=== PATIENT | female | born 1980 | race Caucasian/White ===

== ENCOUNTER → 2017-01-25 | Outpatient (CLI) | payer MEDICAID ==
--- NOTE | 2017-01-26 08:43 | ECHOF ---
Referral Reason:R01.1 cardiac murmur MEASUREMENTS -------- HEIGHT: 170.2 cm WEIGHT: 86.2 kg BP: 124/72 RVIDd: 2.8 cm (< 3.3) IVSd: 1.1 cm (0.6 - 1.1) LVIDd: 3.8 cm (3.9 - 5.3) LVPWd: 1.1 cm (0.6 - 1.1) IVSs: 1.6 cm LVIDs: 2.6 cm LVPWs: 1.6 cm LA Diam: 2.6 cm (2.7 - 3.8) LAESV Index (A-L): 18.93 ml/m Ao Diam: 3.0 cm (2.0 - 3.7) AV Cusp: 2.0 cm (1.5 - 2.6) LA Diam: 2.8 cm (2.7 - 3.8) MV EXCURSION: 23.254 mm (> 18.000) MV EF SLOPE: 143 mm/s (70 - 150) EPSS: 0.2 cm MV E Darvin: 0.79 m/s MV DecT: 167 ms MV A Darvin: 0.53 m/s MV E/A Ratio: 1.47 RAP: 5.00 mmHg RVSP: 14.73 mmHg FINDINGS -------- Sinus rhythm. This was a technically good study. The left ventricular size is normal. There is borderline concentric left ventricular hypertrophy. Overall left ventricular systolic function is normal with, an EF between 55 - 60 %. The right ventricle is normal in size. Normal LA size by volume 22+/-6 ml/m2. The right atrium is normal in size. The aortic valve is trileaflet, and appears structurally normal. No aortic stenosis or regurgitation. The mitral valve is normal. Mild mitral regurgitation is present. The tricuspid valve appears structurally normal. Trace tricuspid regurgitation present. Right ventricular systolic pressure is normal at < 35 mmHg. Trace/mild (physiologic) pulmonic regurgitation. The aortic root size is normal. Normal inferior vena cava with normal inspiratory collapse consistent with estimated right atrial pressure of 5 mmHg. There is no pericardial effusion. CONCLUSIONS -------- 1. Sinus rhythm. 2. Trace/mild (physiologic) pulmonic regurgitation. 3. The aortic root size is normal. 4. Normal inferior vena cava with normal inspiratory collapse consistent with estimated right atrial pressure of 5 mmHg. 5. There is no pericardial effusion. 6. This was a technically good study. 7. There is borderline concentric left ventricular hypertrophy. 8. Overall left ventricular systolic function is normal with, an EF between 55 - 60 %. 9. Normal LA size by volume 22+/-6 ml/m2. 10. The aortic valve is trileaflet, and appears structurally normal. No aortic stenosis or regurgitation. 11. Mild mitral regurgitation is present. 12. Trace tricuspid regurgitation present. 13. Right ventricular systolic pressure is normal at < 35 mmHg. CASE MANAGEMENT ASSISTANT: Haily Michelle RDCS
== END | disposition home or self-care (01) ==
LOC: RADECHMAIN 16:38
PROVIDERS: ATTEND Family Medicine
DX: I08.3 Combined rheumatic disorders of mitral, aortic and tricuspid valves (principal); I51.7 Cardiomegaly
CPT/HCPCS: 93306

== ENCOUNTER → 2019-05-22 | Outpatient (CLI) | payer MEDICAID ==
[2019-05-22 14:54] LABS: Basophils # (A) 0.1 k/uL (0-0.2); Basophils % (A) 1 %; Eosinophils # (A) 0.1 k/uL (0-0.7); Eosinophils % (A) 2 %; HCT 42.4 % (34.0-46.0); Lymphocytes % (A) 33 %; MCH 32.8 pg (25.0-35.0); MCHC 33.1 g/dL (31.0-37.0); MCV 99.1 fL (80.0-100.0); Mean Platelet Volume 7.1; Monocytes # (A) 0.3 k/uL (0-1.0); Monocytes % (A) 5 %; Neutrophils # (A) 3.6 k/uL (1.3-7.7); Neutrophils % (A) 58 %; Platelet Count 325 k/uL (150-450); RBC 4.27 m/uL (3.80-5.40); RDW 14.1 % (11.5-15.5); WBC 6.1 k/uL (3.8-10.6)
== END | disposition home or self-care (01) ==
LOC: LABPAT 14:33
PROVIDERS: ATTEND Obstetrics & Gynecology Obstetrics
DX: Z01.812 Encounter for preprocedural laboratory examination (principal); N92.0 Excessive and frequent menstruation with regular cycle
CPT/HCPCS: 36415; 85025

== ENCOUNTER 2019-05-26 07:29 | Day surgery (SDC) | payer MEDICAID ==
[2019-05-22 11:44] VITALS: BMI 32.3
[~2019-05-26 07:29] MED LIST: DEXAMETHASONE SOD PHOSPHATE 10 MG/ML 1 ML VIAL IV ONE; HYDROmorphone 0.5 MG/0.5 ML SYRINGE IVP PRN; LACTATED RINGERS 1,000 ML IV SCH; LIDOCAINE 1% 20 ML VIAL (10MG/ML) FOR IV START INTRADERMA PRN; MIDAZOLAM 2 MG/2 ML VIAL IV PRN; ONDANSETRON 4 MG/2 ML VIAL IVP ONE; Pre Op ABX Message 1 EACH MISC MISCELLANE ONE; SCOPOLAMINE 1.5MG/72HR PATCH TRANSDERM ONE
[2019-05-26] MEDS ORDERED: PROPOFOL 10 MG/ML 20 ML VIAL IV ONE (09:08)
[2019-05-26] MEDS ORDERED: MIDAZOLAM 2 MG/2 ML VIAL ONE (09:08)
[2019-05-26] MEDS ORDERED: KETOROLAC 30 MG/ML 1 ML VIAL ONE (09:08)
[2019-05-26] MEDS ORDERED: fentaNYL (PF) 50 MCG/ML 2 ML AMP ONE (09:08)
--- NOTE | 2019-05-26 09:28 | P.OP ---
Date of Procedure: 05/26/19 Preoperative Diagnosis: Menorrhagia, dysmenorrhea Postoperative Diagnosis: Same Procedure(s) Performed: Hysteroscopy, dilation and curettage, endometrial ablation with NovaSure Anesthesia: MAC Surgeon: Ann Copeland Estimated Blood Loss (ml): 5 IV fluids (ml): 400 Urine output (ml): 100 Pathology: other (Endometrial curettings) Condition: stable Disposition: PACU Indications for Procedure: Heavy menstrual bleeding to 20 days with significant dysmenorrhea Operative Findings: Normal and Malu cavity is visualized, total length of 6, width of 3.8, power of 125 for cycle time of 61 seconds. Description of Procedure: Patient is seen in the preoperative area and informed consent is obtained once again as it was in the office. Patient denies questions and wishes to proceed. Patient was taken back to the operative suite where general anesthesia was obtained without difficulty by the anesthesia department. She is then prepped and draped in normal sterile fashion in the dorsal lithotomy position. Red rubber catheter was then used to drain the bladder approximately 100 mL of clear yellow urine. A weighted speculum was placed in the posterior vaginal vault the anterior lip of the cervix is visualized and grasped with a single-tooth tenaculum. The endocervical canal then dilated to 18-Spanish, and hysteroscope was placed through the cervix and toward the intracavity a normal appearing proliferative endometrial cavity is noted. Multiple pictures were taken and the hysteroscope was removed. A sharp curettage was then performed until gritty texture was noted in all 4 quadrants. At this time the NovaSure device was opened and set to the appropriate measurements measurements per her uterine length and width. the cavity assessment is done and passed, once this is complete the novasure is operated according to applied researcher's instructions for a total cycle time of 61 seconds. Afterwards the device was removed without difficulty the single-tooth tenaculum was taken off of the anterior lip of the cervix and hemostasis was appreciated. All instruments removed from the patient's vaginal vault ARE correct 2 patient tolerated procedure well and was taken the recovery room awake and in stable condition.
[2019-05-26 09:35] VITALS: TEMP 97.1
[2019-05-26] MEDS ORDERED: PROMETHAZINE INJ 25 MG/ML 1 ML VIAL IVPB ONE (10:15)
[2019-05-26 10:55] VITALS: BP 138/89; PULSE 79; RESP 18
== END 2019-05-26 10:58 | disposition home or self-care (01) ==
LOC: OR 07:29
PROVIDERS: ATTEND Obstetrics & Gynecology Obstetrics
DX: N92.0 Excessive and frequent menstruation with regular cycle (principal); N94.6 Dysmenorrhea, unspecified; Z88.1 Allergy status to other antibiotic agents; Z87.891 Personal history of nicotine dependence; Z79.899 Other long term (current) drug therapy
CPT/HCPCS: 58563; 81025; 88305; J2250; J1100; J2550; J2405; J3010; J1885; J2704

== ENCOUNTER → 2020-08-02 | Outpatient (CLI) | payer MEDICAID | END | disposition home or self-care (01) | LOC: LABWHC1 12:42 | PROVIDERS: ATTEND Pediatrics Pediatric Infectious Diseases | DX: Z03.818 Encounter for observation for suspected exposure to other biological agents ruled out (principal) | CPT/HCPCS: U0003; C9803 ==

== ENCOUNTER → 2020-08-05 | Outpatient (CLI) | payer MEDICAID | END | disposition home or self-care (01) | LOC: LABWHC1 15:13 | PROVIDERS: ATTEND Pediatrics Pediatric Infectious Diseases | DX: Z20.828 Contact with and (suspected) exposure to other viral communicable diseases (principal) | CPT/HCPCS: U0003; C9803 ==

== ENCOUNTER → 2020-10-07 | Outpatient (CLI) | payer MEDICAID | END | disposition home or self-care (01) | LOC: LABMAIN 18:48 | PROVIDERS: ATTEND Emergency Medicine | DX: Z20.828 Contact with and (suspected) exposure to other viral communicable diseases (principal) | CPT/HCPCS: 36415 ==

== ENCOUNTER 2020-12-27 23:52 | Emergency (ER) | payer MEDICAID ==
[2020-12-27 23:56] VITALS: TEMP 98.9
[2020-12-28] MEDS ORDERED: KETOROLAC 15 MG/ML 1 ML VIAL IVP STA (00:28)
[2020-12-28 00:34] LABS: Basophils % (A) 1 %; Eosinophils % (A) 0 %; HCT 46.2 % (34.0-46.0); HGB 15.7 gm/dL (11.4-16.0); Lymphocytes # (A) 1.1 k/uL (1.0-4.8); Lymphocytes % (A) 18 %; MCH 32.9 pg (25.0-35.0); MCHC 34.1 g/dL (31.0-37.0); MCV 96.7 fL (80.0-100.0); Mean Platelet Volume 7.3; Monocytes # (A) 0.2 k/uL (0-1.0); Monocytes % (A) 4 %; Neutrophils # (A) 4.5 k/uL (1.3-7.7); Neutrophils % (A) 76 %; Platelet Count 232 k/uL (150-450); RBC 4.77 m/uL (3.80-5.40); RDW 13.2 % (11.5-15.5); WBC 5.9 k/uL (3.8-10.6)
[2020-12-28 00:57] LABS: ALT 60 U/L (4-34); AST 68 U/L (14-36); African American GFR (CKD) >90 (>60 ml/min/1.73 sqM); Alkaline Phosphatase 65 U/L (38-126); Anion Gap 13 mmol/L; Blood Urea Nitrogen 6 mg/dL (7-17); Calcium 8.8 mg/dL (8.4-10.2); Carbon Dioxide 22 mmol/L (22-30); Chloride 103 mmol/L (98-107); Glucose 118 mg/dL (74-99); LDH 1114 U/L (313-618); Magnesium 1.9 mg/dL (1.6-2.3); Non-African American GFR(CKD) >90 (>60 ml/min/1.73 sqM); Potassium 3.5 mmol/L (3.5-5.1); Sodium 138 mmol/L (137-145); Total Bilirubin 0.5 mg/dL (0.2-1.3); Total Protein 7.6 g/dL (6.3-8.2)
[2020-12-28] MEDS ORDERED: SODIUM CHLORIDE 0.9% 500 ML 500 ML IV ONE (00:57)
[2020-12-28 00:59] LABS: D-Dimer 0.53 mg/L FEU (<0.60); INR 0.9 (<1.2); Prothrombin Time 9.5 sec (9.0-12.0)
[2020-12-28] MEDS ORDERED: SODIUM CHLORIDE 0.9% 1,000 ML IV SCH (01:00)
[2020-12-28 01:58] VITALS: BP 128/86; PULSE 94; RESP 18
--- NOTE | 2020-12-28 02:02 | CT ---
EXAMINATION TYPE: CT chest angio for PE DATE OF EXAM: 12/28/2020 COMPARISON: None HISTORY: hx PE, covid, pleuritic chest pain CT DLP: 382.5 mGycm Automated exposure control for dose reduction was used. CONTRAST: Performed with IV Contrast, patient injected with 65ml mL of Isovue 370. Images were obtained from the thoracic inlet to the diaphragm with IV contrast and 3-D post processin g. There is extensive patchy bilateral pulmonary airspace infiltrates. Heart size is normal. There is no mediastinal adenopathy. There are no hilar masses. There are bronchial enlarged multiple lymph nodes that measure up to 1.5 cm. This is likely inflammatory. There is no evidence of aortic aneurysm or d issection. I see no filling defects in the pulmonary arteries. Thoracic spine is intact. There is no compression fracture. Sternum is intact. IMPRESSION: Extensive bilateral pulmonary infiltrates consistent with pneumonia. Bronchial adenopathy. No evidence of pulmonary embolism.
[2020-12-28 02:04] LABS: C Reactive Protein 157.4 mg/L (<10.0)
--- NOTE | 2020-12-28 02:20 | ED ---
SOB HPI - General Chief Complaint: Shortness of Breath Stated Complaint: Covid +, SOB Time Seen by Provider: 12/28/20 00:03 Source: patient Mode of arrival: ambulatory Limitations: no limitations - History of Present Illness Initial Comments: Very pleasant 40-year-old female presenting today for chief complaint of shortness of breath but positive Covid diagnosis. Patient states that she has had Covid for the past 10 days. She states initially she had a lot more headaches body aches and fevers on and off for cheese able to manage with alternating Tylenol and Aleve. Patient states that for the past day she's had increasing respiratory symptoms including shortness of breath and pain with deep inspiration patient states that she has not had hemoptysis she denies leg swelling calf pain. Patient states she does have history of pulmonary embolism during in the past and this concerned her. patient bought a home oxygen monitor and states it was quite low at 88% and she noticed her HR was hgiher than usual, this made her nervous and she came to the ER for evaluation. Upon arrival pt saturating 94-96% she does appear anxious, and HR is 130. - Related Data Home Medications Medication Instructions Recorded Confirmed ALPRAZolam [Xanax] 0.5 mg PO HS 05/22/19 05/26/19 Previous Rx's Medication Instructions Recorded Albuterol Sulfate [Proair Hfa] 1 - 2 puff INHALATION Q6HR PRN 30 12/28/20 Days #1 inhaler Butalb/APAP/Caff 50-325-40Mg 1 tab PO Q8H PRN 3 Days #9 tablet 12/28/20 [Fioricet 50-325-40] Dexamethasone [Decadron] 6 mg PO DAILY 2 Days #2 tablet 12/28/20 Allergies Allergy/AdvReac Type Severity Reaction Status Date / Time cephalexin [From Keflex] Allergy nausea/dizz Verified 12/27/20 23:54 y Review of Systems ROS Statement: Those systems with pertinent positive or pertinent negative responses have been documented in the HPI. ROS Other: All systems not noted in ROS Statement are negative. Past Medical History Past Medical History: Pulmonary Embolus (PE) Additional Past Medical History / Comment(s): endometriosis/heavy periods History of Any Multi-Drug Resistant Organisms: None Reported Past Surgical History: No Surgical Hx Reported Past Anesthesia/Blood Transfusion Reactions: Family History of Problems w/ Anesthesia, Motion Sickness Additional Past Anesthesia/Blood Transfusion Reaction / Comment(s): mother-PONV. pt has never had anesthesia Past Psychological History: Anxiety Smoking Status: Current every day smoker Past Alcohol Use History: Occasional Past Drug Use History: None Reported - Past Family History Mother Family Medical History: Cancer General Exam - General Exam Comments Initial Comments: General: The patient is awake and alert, in no distress Eye: Pupils are equal, round and reactive to light, extra-ocular movements are intact. No nystagmus. There is normal conjunctiva bilaterally. No signs of icterus. Cardiovascular: There is a regular rate and rhythm. No murmur, rub or gallop is appreciated. Respiratory: Lungs are clear to auscultation, respirations are non-labored, breath sounds are equal. No wheezes, stridor, rales, or rhonchi. No retractions or abdominal breathing Musculoskeletal: Normal ROM, no tenderness. Strength 5/5. Sensation intact. Radial pulses equal bilaterally 2+. Neurological: A&O x 3. CN II-XII intact grossly, There are no obvious motor or sensory deficits. Coordination appears grossly intact. Speech is normal. Skin: Skin is warm and dry and no rashes or lesions are noted. Psychiatric: Cooperative, appropriate mood & affect, normal judgment. Limitations: no limitations Course Vital Signs 12/27/20 12/28/20 23:54 01:57 Temperature 98.9 F Pulse Rate 136 H 94 Respiratory 20 18 Rate Blood Pressure 159/91 128/86 O2 Sat by Pulse 95 95 Oximetry Medical Decision Making - Medical Decision Making Lungs overall sound clear to auscultation no obvious abnormality. Patient does have history of pulmonary embolism-moving here from the low risk to the high risk category. CT negative for pulmonary embolism however there is an extensive pulmonary infiltrates consistent with covert pneumonia. This is felt to be viral. Patient is no leukocytosis. She is no longer febrile. Patient is maintaining adequate oxygen saturation at 96%. At this time I feel patient is stable for discharge wtih close home monitoring and return for any worsening sym ptoms (which I explained may occurr). We discussed recent research and types of treatment available. I discussed risks first benefit of Decadron and patient would like to proceed despite being 96% on RA. Patient provided proAir, and fiorcet for migraines she was experienciing with this viral infection. Patient is agreeable to this treatment and care plan--- I discussed the case with attending provider Dr. Isaac who is agreeable to discharge. - Lab Data Result diagrams: 12/28/20 00:20 12/28/20 00:20 Lab Results 12/28/20 12/28/20 12/28/20 Range/Units 00:20 00:20 00:20 WBC 5.9 (3.8-10.6) k/uL RBC 4.77 (3.80-5.40) m/uL Hgb 15.7 (11.4-16.0) gm/dL Hct 46.2 H (34.0-46.0) % MCV 96.7 (80.0-100.0) fL MCH 32.9 (25.0-35.0) pg MCHC 34.1 (31.0-37.0) g/dL RDW 13.2 (11.5-15.5) % Plt Count 232 (150-450) k/uL MPV 7.3 Neutrophils % 76 % Lymphocytes % 18 % Monocytes % 4 % Eosinophils % 0 % Basophils % 1 % Neutrophils # 4.5 (1.3-7.7) k/uL Lymphocytes # 1.1 (1.0-4.8) k/uL Monocytes # 0.2 (0-1.0) k/uL Eosinophils # 0.0 (0-0.7) k/uL Basophils # 0.0 (0-0.2) k/uL PT 9.5 (9.0-12.0) sec INR 0.9 (<1.2) APTT 27.0 (22.0-30.0) sec D-Dimer 0.53 (<0.60) mg/L FEU Sodium 138 (137-145) mmol/L Potassium 3.5 (3.5-5.1) mmol/L Chloride 103 (98-107) mmol/L Carbon Dioxide 22 (22-30) mmol/L Anion Gap 13 mmol/L BUN 6 L (7-17) mg/dL Creatinine 0.69 (0.52-1.04) mg/dL Est GFR (CKD-EPI)AfAm >90 (>60 ml/min/1.73 sqM) Est GFR (CKD-EPI)NonAf >90 (>60 ml/min/1.73 sqM) Glucose 118 H (74-99) mg/dL Plasma Lactic Acid Solomon (0.7-2.0) mmol/L Calcium 8.8 (8.4-10.2) mg/dL Magnesium 1.9 (1.6-2.3) mg/dL Total Bilirubin 0.5 (0.2-1.3) mg/dL AST 68 H (14-36) U/L ALT 60 H (4-34) U/L Alkaline Phosphatase 65 (38-126) U/L Lactate Dehydrogenase 1114 H (313-618) U/L C-Reactive Protein 157.4 H (<10.0) mg/L Total Protein 7.6 (6.3-8.2) g/dL Albumin 4.0 (3.5-5.0) g/dL 12/28/20 Range/Units 00:20 WBC (3.8-10.6) k/uL RBC (3.80-5.40) m/uL Hgb (11.4-16.0) gm/dL Hct (34.0-46.0) % MCV (80.0-100.0) fL MCH (25.0-35.0) pg MCHC (31.0-37.0) g/dL RDW (11.5-15.5) % Plt Count (150-450) k/uL MPV Neutrophils % % Lymphocytes % % Monocytes % % Eosinophils % % Basophils % % Neutrophils # (1.3-7.7) k/uL Lymphocytes # (1.0-4.8) k/uL Monocytes # (0-1.0) k/uL Eosinophils # (0-0.7) k/uL Basophils # (0-0.2) k/uL PT (9.0-12.0) sec INR (<1.2) APTT (22.0-30.0) sec D-Dimer (<0.60) mg/L FEU Sodium (137-145) mmol/L Potassium (3.5-5.1) mmol/L Chloride (98-107) mmol/L Carbon Dioxide (22-30) mmol/L Anion Gap mmol/L BUN (7-17) mg/dL Creatinine (0.52-1.04) mg/dL Est GFR (CKD-EPI)AfAm (>60 ml/min/1.73 sqM) Est GFR (CKD-EPI)NonAf (>60 ml/min/1.73 sqM) Glucose (74-99) mg/dL Plasma Lactic Acid Solomon 1.5 (0.7-2.0) mmol/L Calcium (8.4-10.2) mg/dL Magnesium (1.6-2.3) mg/dL Total Bilirubin (0.2-1.3) mg/dL AST (14-36) U/L ALT (4-34) U/L Alkaline Phosphatase (38-126) U/L Lactate Dehydrogenase (313-618) U/L C-Reactive Protein (<10.0) mg/L Total Protein (6.3-8.2) g/dL Albumin (3.5-5.0) g/dL Disposition Clinical Impression: Pneumonia due to COVID-19 virus, Dyspnea, Frequent headaches Disposition: HOME SELF-CARE Condition: Good Instructions (If sedation given, give patient instructions): Coronavirus Disease 2019 (COVID-19) Additional Instructions: Please use medication as discussed. Please follow-up with family doctor in the next 2 days. RETURN FOR HYPOXIA as discussed, worsening shortness of breath. Please return to emergency room if the symptoms increase or worsen or for any other concerns. Prescriptions: Dexamethasone [Decadron] 6 mg PO DAILY 2 Days #2 tablet Butalb/APAP/Caff 50-325-40Mg [Fioricet 50-325-40] 1 tab PO Q8H PRN 3 Days #9 tablet PRN Reason: Headache Albuterol Sulfate [Proair Hfa] 1 - 2 puff INHALATION Q6HR PRN 30 Days #1 inhaler PRN Reason: Wheezing Is patient prescribed a controlled substance at d/c from ED?: No Referrals: Scooter Herrera MD [Primary Care Provider] - 1-2 days Time of Disposition: 02:20
[2020-12-28 09:04] LABS: Ferritin 476.3 ng/mL (10.0-291.0)
== END 2020-12-28 02:47 | disposition home or self-care (01) ==
LOC: EC 23:52
DX: U07.1 COVID-19 (principal); J12.82 Pneumonia due to coronavirus disease 2019; F41.9 Anxiety disorder, unspecified; Z79.899 Other long term (current) drug therapy; F17.200 Nicotine dependence, unspecified, uncomplicated; Z88.1 Allergy status to other antibiotic agents
CPT/HCPCS: 36415; 93005; 85379; 80053; 82728; 83605; 83615; 83735; 85025; 85610; 85730; 86140; 84145; 71275; 99285; 96374; 96361; J1885; Q9967

== ENCOUNTER → 2021-05-14 | Outpatient (CLI) | payer MEDICAID | END | disposition home or self-care (01) | LOC: LABMAIN 14:56 | PROVIDERS: ATTEND Emergency Medicine | DX: U07.1 COVID-19 (principal) | CPT/HCPCS: 36415; 86769 ==

== ENCOUNTER → 2021-06-04 | Outpatient (CLI) | payer MEDICAID | END | disposition home or self-care (01) | LOC: LABMAIN 15:47 | PROVIDERS: ATTEND Physician Assistant | DX: Z20.822 Contact with and (suspected) exposure to COVID-19 (principal) | CPT/HCPCS: 87635 ==

== ENCOUNTER → 2021-09-14 | Outpatient (CLI) | payer MEDICAID, OTHER | END | disposition home or self-care (01) | LOC: LABMAIN 18:40 | PROVIDERS: ATTEND Nurse Practitioner | DX: Z20.822 Contact with and (suspected) exposure to COVID-19 (principal); R09.81 Nasal congestion | CPT/HCPCS: 36415; 86769; 87635 ==

== ENCOUNTER 2021-10-10 15:54 | Emergency (ER) | payer MEDICAID, OTHER ==
[2021-10-10 16:12] VITALS: TEMP 97.9
[2021-10-10] MEDS ORDERED: SODIUM CHLORIDE 0.9% 50 ML IVPB ONE (17:45)
[2021-10-10] MEDS ORDERED: BAMLANIVIMAB (EUA) 700 MG, ETESEVIMAB (EUA) 1,400 MG in SODIUM CHLORIDE 0.9% 100 ML IVPB ONE (17:45)
--- NOTE | 2021-10-10 17:52 | XR ---
EXAMINATION TYPE: XR chest 2V DATE OF EXAM: 10/10/2021 COMPARISON: NONE HISTORY: Chest pain TECHNIQUE: FINDINGS: Heart and mediastinum are normal. Lungs are clear. Diaphragm is normal. Bony thorax is inta ct. IMPRESSION: Normal chest.
--- NOTE | 2021-10-10 18:02 | ED ---
General Adult HPI - General Chief complaint: Upper Respiratory Infection Stated complaint: Wants antibody Time Seen by Provider: 10/10/21 16:21 Source: patient Mode of arrival: ambulatory Limitations: no limitations - History of Present Illness Initial comments: This 41-year-old female presents to the emergency department with COVID-19 requesting the antibody infusion. Patient states yesterday she began getting a sore/scratchy throat, congestion, runny nose and headache. Today, her at home covid 19 test was positive. She states she would like to receive the antibody infusion. She denies any chest pain, shortness breath, abdominal pain, nausea, vomiting, fever, change in vision. Patient did state she had COVID-19 last year and had bilateral pneumonia, requesting a chest x-ray today. - Related Data Home Medications Medication Instructions Recorded Confirmed ALPRAZolam [Xanax] 0.5 mg PO HS PRN 10/10/21 10/10/21 Naproxen Sodium [Aleve] 440 mg PO DAILY PRN 10/10/21 10/10/21 Phentermine HCl [Adipex-P] 37.5 mg PO DAILY 10/10/21 10/10/21 Rimegepant Sulfate [Nurtec Odt] 75 mg PO DAILY PRN 10/10/21 10/10/21 Allergies Allergy/AdvReac Type Severity Reaction Status Date / Time cephalexin [From Keflex] Allergy nausea/dizz Verified 10/10/21 18:15 y Review of Systems ROS Statement: Those systems with pertinent positive or pertinent negative responses have been documented in the HPI. ROS Other: All systems not noted in ROS Statement are negative. Past Medical History Past Medical History: Pulmonary Embolus (PE) Additional Past Medical History / Comment(s): endometriosis/heavy periods History of Any Multi-Drug Resistant Organisms: None Reported Past Surgical History: No Surgical Hx Reported Past Anesthesia/Blood Transfusion Reactions: Family History of Problems w/ Anesthesia, Motion Sickness Additional Past Anesthesia/Blood Transfusion Reaction / Comment(s): mother-PONV. pt has never had anesthesia Past Psychological History: Anxiety Smoking Status: Current every day smoker Past Alcohol Use History: Occasional Past Drug Use History: None Reported - Past Family History Mother Family Medical History: Cancer General Exam Limitations: no limitations General appearance: alert, in no apparent distress Head exam: Present: atraumatic Eye exam: Present: normal appearance, EOMI ENT exam: Present: normal exam Neck exam: Present: full ROM Respiratory exam: Present: normal lung sounds bilaterally. Absent: respiratory distress, wheezes, rales, rhonchi, stridor Cardiovascular Exam: Present: regular rate, normal rhythm, normal heart sounds. Absent: systolic murmur, diastolic murmur, rubs, gallop, clicks GI/Abdominal exam: Present: soft, normal bowel sounds. Absent: distended, tenderness, guarding, rebound, rigid Extremities exam: Present: full ROM Back exam: Present: full ROM Neurological exam: Present: alert, oriented X3, CN II-XII intact Psychiatric exam: Present: normal affect, normal mood Skin exam: Present: warm, dry, intact, normal color. Absent: rash Course Vital Signs 10/10/21 10/10/21 16:09 17:55 Temperature 97.9 F Pulse Rate 86 Respiratory 20 15 Rate Blood Pressure 143/93 O2 Sat by Pulse 98 Oximetry Medical Decision Making - Medical Decision Making This 41 year old female presents to the emergency department with COVID-19. She is requesting the COVID-19 antitbody infusion. Chest x-ray impression: Heart and mediastinum are normal. Lungs are clear. Diaphragm is normal. Bony thorax is intact. Normal chest. Patient received antibody infusion without any complications. Patient sent home in stable condition. Patient given strict return precautions and agreed to plan. Disposition Clinical Impression: COVID-19 Disposition: HOME SELF-CARE Condition: Stable Instructions (If sedation given, give patient instructions): Coronavirus Disease 2019 (COVID-19) Additional Instructions: Please return to emergency department with new or worsening symptoms. Can get pulse oximeter from [facility], return to emergency department if oxygen level is ever below 90%. Stay hydrated. Can take Tylenol or Motrin as directed. Follow up with primary care provider next 1-2 days. Is patient prescribed a controlled substance at d/c from ED?: No Referrals: Scooter Herrera MD [Primary Care Provider] - 1-2 days Time of Disposition: 18:58
[2021-10-10 19:32] VITALS: BP 136/82; PULSE 87; RESP 16
== END 2021-10-10 19:32 | disposition home or self-care (01) ==
LOC: EC 15:54
DX: U07.1 COVID-19 (principal); F41.9 Anxiety disorder, unspecified; F17.200 Nicotine dependence, unspecified, uncomplicated; Z86.711 Personal history of pulmonary embolism; Z79.899 Other long term (current) drug therapy
CPT/HCPCS: 71046; 99284; J3490

== ENCOUNTER → 2021-12-13 | Outpatient (CLI) | payer MEDICAID | END | disposition home or self-care (01) | LOC: LABWHC1 14:40 | PROVIDERS: ATTEND Physician Assistant | DX: Z20.822 Contact with and (suspected) exposure to COVID-19 (principal) | CPT/HCPCS: 87635 ==

== ENCOUNTER → 2022-12-28 | Outpatient (CLI) | payer MEDICAID ==
--- NOTE | 2022-12-28 16:07 | MR ---
EXAMINATION TYPE: MR lumbar spine wo con DATE OF EXAM: 12/28/2022 COMPARISON: NONE HISTORY: Low back pain into bilateral lower extremities for 5 months. History of recent fall November 20. Radiculopathy and muscle spasm along with bilateral leg weakness and hypersensitivity per order. TECHNIQUE: Multiplanar, multisequence imaging of the lumbar spine is performed without IV contrast. FINDINGS: Sagittal images of the lumbar spine show vertebral body heights and alignment to appear sat isfactory. There is some multilevel disc desiccation but the disc space heights are preserved. The c onus medullaris is normal in position and signal ending at superior L1 level. The bone marrow signal intensity is within normal limits. Axial images show T12-L1 level to appear within normal limits. Axial images at L1-L2 level show mild broad disc bulge minimally effaces the anterior thecal sac. Pat ent bilateral neural foramina are seen. Similar findings noted at L2-L3 level. Axial images at L3-L4 levels mild broad-based posterior disc protrusion minimally effacing anterior t hecal sac along with mild facet arthropathy and ligamentum flavum hypertrophy effacing posterior late ral thecal sac. There is mild bilateral anterior inferior neural foraminal narrowing seen. Axial images at L4-L5 level show mild/moderate facet arthropathy with posterior 9 mm left synovial cy st axial image 13. There is mild broad-based posterior disc protrusion the spinal canal is preserved. There is mild left greater than right bilateral anterior inferior neural foraminal narrowing. Axial images at L5-S1 level show mild/moderate facet arthropathy bilaterally. Spinal canal is preserv ed. Bilateral neural foramina are patent. There is partial visualization of normal size left ovary with peripheral follicles and ET tube are no airam uterus with rounded low dense mass is probable fibroids, for reference is a 2.1 cm intramural fib roid axial image 1. There is exophytic thin-walled at least 5.7 cm cyst centrally lower pole level ri ght kidney partially imaged. IMPRESSION: Some multilevel degenerative change in the lumbar spine as detailed above. No large disc herniation is seen to account for patient's bilateral radiculopathy type symptoms however.
== END | disposition home or self-care (01) ==
LOC: RADMRIMAIN 15:20
PROVIDERS: ATTEND Physician Assistant
DX: M47.26 Other spondylosis with radiculopathy, lumbar region (principal); M54.59 Other low back pain; M25.552 Pain in left hip; R53.1 Weakness; M62.830 Muscle spasm of back
CPT/HCPCS: 72148

== ENCOUNTER → 2023-01-16 | Outpatient (CLI) | payer MEDICAID ==
[2023-01-16 15:31] LABS: HCT 43.9 % (37.2-46.3); HGB 14.8 g/dL (12.0-15.0); MCH 32.7 pg (27.0-32.0); MCHC 33.7 g/dL (32.0-37.0); MCV 97.1 fL (80.0-97.0); Mean Platelet Volume 9.9 fL (9.5-12.2); NRBC Per 100 WBC 0 /100 WBCS (0.0-0.0); Platelet Count 278 X 10*3/uL (140-440); RBC 4.52 X 10*6/uL (4.10-5.20); RDW 12.9 % (11.5-14.5); WBC 7.02 X 10*3/uL (4.50-10.00)
[2023-01-16 16:24] LABS: ALT 41 U/L (8-44); AST 28 U/L (13-35); African American GFR (CKD) 112.1 (60.0-200.0); Albumin 4.5 g/dL (3.8-4.9); Albumin/Globulin Ratio 1.49 (1.60-3.17); Alkaline Phosphatase 43 U/L (41-126); BUN/Creat Ratio 14.55 Ratio (12.00-20.00); Calcium 9.8 mg/dL (8.7-10.3); Carbon Dioxide 24.6 mmol/L (20.0-27.5); Chloride 103 mmol/L (96-109); Chol/HDL Ratio 3.33 Ratio; Glucose 119 mg/dL (70-110); Iron 88 ug/dL (50-170); LDL Cholesterol,Calculated 132.2 mg/dL (0.0-131.0); Magnesium 2.1 mg/dL (1.5-2.4); Non-African American GFR(CKD) 96.7 (60.0-200.0); Potassium 4.7 mmol/L (3.5-5.5); Sodium 139 mmol/L (135-145); Total Protein 7.6 g/dL (6.2-8.2); VLDL Calculation 13.32 mg/dL (5.00-40.00)
== END | disposition home or self-care (01) ==
LOC: LABWHC1 10:45
PROVIDERS: ATTEND Family Medicine
DX: Z00.00 Encounter for general adult medical examination without abnormal findings (principal)
CPT/HCPCS: 36415; 80053; 80061; 82607; 82746; 83036; 83540; 83735; 84443; 85027; 86038

== ENCOUNTER → 2023-01-17 | Outpatient (CLI) | payer MEDICAID ==
[2023-01-17 14:07] VITALS: BP 155/97; PULSE 109; RESP 20; TEMP 98.4
--- NOTE | 2023-01-17 14:49 | P.PAINPG ---
PQRS Measure Charge Sheet Comment: HISTORY OF PRESENT ILLNESS: 42 yr old female as a referral from Dr Holguin presents today w severe and chronic LBP since Aug 2022 secondary to for evaluation. Pt states pain level is provoked at 8/10 in intensity, constant, localized in the lower lumbar spine, achy in character w shooting pain towards the BLEs. Pain is provoked by standing/ walking for periods of 45 min or more. Pain is alleviated by medications (Tyl, Aleve, Neurontin), PT to start in 1 wk, massage therapy semi monthly since Nov 2022 till present, chiropractic treatments weekly since Sep 2022 till present, physician guided home stretching regimen, repositioning and rest. PMH: PE, Endometriosis, Anxiety PSH: Hysteroscopy, dilation and curettage, endometrial ablation with NovaSure (2019) SH: Daily tobacco use, Occasional ETOH use, No illicit drug use FH: Mo- [place] All: See list Meds: See list REVIEW OF ORGAN SYSTEMS: CONSTITUTIONAL: No fevers or chills. No recent weight loss. NEUROLOGICAL: + numbness and tingling along the distal extremities. No seizure disorders or headaches. MUSCULOSKELETAL: + pain PSYCHIATRIC: Denies current depression or suicidal thoughts. Physical Examinations : Constitutional : Cooperative , not in acute distress . Neurologic : Cranial nerve II to XII intact. No focal neurological deficits. Psychiatric : alert & oriented x 3. Matching mood & appropriate affect. Judgment & insight intact. Musculoskeletal : Cervical Spine Motor strength in the deltoid and biceps: Normal right side. Normal Left side Motor strength biceps and the wrist extensors: Normal right side . Normal left side Motor strength in the triceps muscle: Normal right side. Normal left side Deep tendon reflexes: Normal at the biceps. Normal at Brachioradialis. Normal at triceps Vertebral body tenderness to deep palpation over Cervical facet loading test: positive bilaterally Spurling test: positive bilaterally Neck distraction test: positive bilaterally Anais sign: positive bilaterally Lumbar spine Motor strength lower extremities ,thigh and legs 5/5 Right side , 5/5 Left side Deep tendon reflexes : Normal Knee Jerk. Normal Ankle Jerk Vertebral body tenderness over L5 Lumbar facet Loading Test: positive Right / positive Left Range of motion of the lumbar spine Flexion 30 degrees, extension 10 degrees Straight Leg Raise test: Left/ Right positive at degree Raúl test: positive right / positive left. Severe tenderness over the Sacroiliac joint on the Right / Left sides Gaenslen test: positive bilaterally Seated flexion test: positive bilaterally. Sacral spine : Severe tenderness over the Sacroiliac joint: right side / left side Range of motion: Flexion of the lumbar spine <60 degrees Range of motion: Extension of the lumbar spine <20 degrees Gaenslen's Test positive Jonathon's Test positive Raúl test: positive right side / left side Thigh Thrust Test Sacral Thrust Test Imaging: MRI without contrast of the lumbar spine from 12/28/22 reviewed Assessment/ Plan : Lumbar spondylosis Recommendation of KMARON L5-S1 #1. May need a series of injections for optimal pain relief. Risks, benefits of procedure discussed and patient verbalized understanding. Admits to aspirin or anti- coagulant use or medical history of diabetes. Protocol for discontinuation/ continuation of medications cyndi procedure discussed. All questions answered. I have spent greater than 30 minutes on patient care today. Dr Lei was available by phone for the evaluation of this patient. The time was used to review the medical records including relevant urine studies and Prescription history (MAPs), review of the available imaging, evaluation and examination of the patient, coordination of care with the medical staff and if applicable refer ring physicians, as well as creation of the medical record - Pain Location Lower Back Non-Pharmacological Interventions: Heat, Ice, Inactivity, Massage, Stretching Pharmacological Interventions: PRN Medication, Scheduled Medication PQRS Narrative: Smoking Status Former smoker Home Medications: Ambulatory Orders ALPRAZolam [Xanax] 0.5 mg PO HS PRN 10/10/21 Naproxen Sodium [Aleve] 440 mg PO DAILY PRN 10/10/21 Phentermine HCl [Adipex-P] 37.5 mg PO DAILY 10/10/21 Rimegepant Sulfate [Nurtec Odt] 75 mg PO DAILY PRN 10/10/21 Acetaminophen Tab [Tylenol Tab] 1,000 mg PO Q6HR 01/17/23 Famotidine [Pepcid] 20 mg PO DAILY 01/17/23 Gabapentin [Neurontin] 300 mg PO TID 01/17/23 Glucosamine HCl/Chondroitin Baires [Glucosamine-Chondroitin Cap] 01/17/23 Magnesium 250 mg PO 01/17/23 Multivitamins, Thera [Multivitamin (formulary)] 01/17/23 Naproxen Sodium [Aleve] 440 mg PO BID 01/17/23 Thiamine [Vitamin B-1] 100 mg PO DAILY 01/17/23 Controlled Substance Measures - Controlled Substance Measures Is patient prescribed a controlled substance at discharge?: No
== END ==
LOC: PNWHC3 13:36
PROVIDERS: ATTEND Specialist
DX: M47.816 Spondylosis without myelopathy or radiculopathy, lumbar region (principal); F41.9 Anxiety disorder, unspecified; I26.99 Other pulmonary embolism without acute cor pulmonale; Z88.1 Allergy status to other antibiotic agents; Z87.891 Personal history of nicotine dependence
CPT/HCPCS: 99211

== ENCOUNTER → 2023-02-07 | Outpatient (CLI) | payer MEDICAID ==
--- NOTE | 2023-02-07 13:58 | US ---
EXAMINATION TYPE: US kidneys/renal and bladder DATE OF EXAM: 02/07/2023 COMPARISON: MRI 2022 CLINICAL INDICATION: Female, 42 years old with history of N28.1 CYST OF KIDNEY; Right kidney cyst see n on recent MRI EXAM MEASUREMENTS: Right Kidney: 10.9 x 5.9 x 5.4 cm Left Kidney: 11.1 x 5.2 x 5.5 cm Right Kidney: 6.4 x 4.4 x 5.0cm hypoechoic area mid pole that persisted post void Left Kidney: 0.9cm echogenic focus superior pole Bladder: wnl Bilateral Jets seen: yes . No masses are identified. The urinary bladder is anechoic. Bilateral ureteral jets are seen. IMPRESSION: 1. Right renal collecting system dilation versus cysts consider CT urogram for complete evaluation. 2. Nonobstructing left renal calculus.
== END | disposition home or self-care (01) ==
LOC: RADUSWWP 13:01
PROVIDERS: ATTEND Family Medicine
DX: N28.1 Cyst of kidney, acquired (principal); N20.0 Calculus of kidney
CPT/HCPCS: 76770

== ENCOUNTER 2023-03-21 11:32 | Day surgery (SDC) | payer MEDICAID ==
[2023-03-06 13:14] VITALS: BMI 34.4
[~2023-03-21 11:32] MED LIST changes: -DEXAMETHASONE SOD PHOSPHATE 10 MG/ML 1 ML VIAL IV ONE; -HYDROmorphone 0.5 MG/0.5 ML SYRINGE IVP PRN; +LIDOCAINE 1% (10MG/ML) FOR IV START INTRADERMA PRN; -LIDOCAINE 1% 20 ML VIAL (10MG/ML) FOR IV START INTRADERMA PRN; -MIDAZOLAM 2 MG/2 ML VIAL IV PRN; -ONDANSETRON 4 MG/2 ML VIAL IVP ONE; -Pre Op ABX Message 1 EACH MISC MISCELLANE ONE; -SCOPOLAMINE 1.5MG/72HR PATCH TRANSDERM ONE
[2023-03-21 12:00] VITALS: TEMP 98.2
[2023-03-21] MEDS ORDERED: DEXAMETHASONE SOD PHOSPHATE 10 MG/ML 1 ML VIAL ONE (12:40)
[2023-03-21] MEDS ORDERED: IOPAMIDOL M200 10 ML VIAL ONE (12:40)
--- NOTE | 2023-03-21 12:47 | P.PCN ---
Date of Procedure: 03/21/23 Procedure(s) Performed: PREOPERATIVE DIAGNOSIS: 1- Lumbar Degenerative Disc Diseases 2-Lumbar spondylosis with Facet arthropathy without myelopathy. POSTOPERATIVE DIAGNOSIS: 1-lumbar degenerative disc disease. 2-lumbar spondylosis with facet arthropathy without myelopathy. . PROCEDURE 1. Lumbar epidural steroid injection under fluoroscopic guidance at the L5-S1 level. (Fluoroscopy imaging was available in radiology department) 2. Lumbar epidurogram. ANESTHESIA: Local anesthesia with lidocaine 1% 3 mL only EBL: Minimal PROCEDURE INDICATION: The patient with low back pain and radiculitis symptoms unresponsive to conservative treatment. Fluoroscopy was used to optimize visualization of the needle placement and to maximize safety. PROCEDURE DESCRIPTION / TECHNIQUE: The patient was seen and identified in the preoperative area. Risks, benefits, complications including but not limited to infections ,bleeding ,allergic reaction to the medications ,nerve damage and not complete pain releife , and alternatives were discussed with the patient. The patient agreed to proceed with the procedure and signed the consent. IV was started, and vital signs were stable. Patient was taken to the OR and time out was completed. The patient was placed in the prone position on procedure table and a pillow was placed under the abdomen to reduce lumbar lordosis. The lumbosacral area was prepped and draped in the usual sterile fashion.ere closely monitored during the procedure.. Vital signs was monitered during the entire procedure. Using anterior-posterior fluoroscopy, the L5-S1 interlaminar space was identified and the skin over this site was marked and then infiltrated with 1% lidocaine subcutaneously. Subsequently, a 20-gauge Tuohy epidural needle was inserted and advanced toward the epidural space using the ``Loss of resistance technique and guided by AP and lateral fluoroscopy. The correct needle position in the epidural space was verified with the injection of 2 mL of the water soluble contrast dye Isovue 200 contrast and observing an excellent epidurogram with the epidural spread of the dye, after negative aspiration for blood and CSF and in the absence of paresthesias. Again after negative aspiration, a 6 ml mixture containing 20 mg of Dexamethasone ( Preservetive Free ), and 2 ml of preservative free Normal Saline, and 2 ml of preservative free lidocaine 1% solution was injected and a washout of epidurogram was seen. Needle was withdrawn intact, skin was cleansed, and bandages were applied. COMPLICATIONS: None DISPOSITION / PLANS: The patient was placed in a supine position and transferred to the recovery area in a stable condition for observation. There was no evidence of lower extremity motor or sensory deficit after the procedure. Patient was discharged from the recovery room after meeting discharge criteria. Home discharge instructions were given to the patient by the staff. The patient was reexamined prior to discharge. The patient will schedule a follow up in the clinic in 2-4 weeks. note= patient had ALLERGY to methylprednisolone, ( extrem anexity )but she used dexamethasone in the past without any problem for this reason a use dexamethasone today
[2023-03-21 12:56] VITALS: RESP 15
[2023-03-21 13:04] VITALS: BP 157/96; PULSE 96
--- NOTE | 2023-03-21 14:42 | FL ---
Fluoroscopy History: Lumbar Epid Inj 3 sec fluoro, dap: .[id number]
== END 2023-03-21 13:17 | disposition home or self-care (01) ==
LOC: ORPAIN 11:32
PROVIDERS: ATTEND Specialist
DX: M51.16 Intervertebral disc disorders with radiculopathy, lumbar region (principal); M47.26 Other spondylosis with radiculopathy, lumbar region; Z88.8 Allergy status to other drugs, medicaments and biological substances
CPT/HCPCS: 81025; 62323; J1100; Q9966

== ENCOUNTER → 2023-04-11 | Outpatient (CLI) | payer MEDICAID ==
[2023-04-11 11:47] VITALS: BP 167/105; PULSE 108; RESP 15; TEMP 97.6
--- NOTE | 2023-04-11 14:42 | P.PAINPG ---
PQRS Measure Charge Sheet Comment: 42 yr old female presents today w severe and chronic LBP since Aug 2022 secondary to DDD, spondylosis and facet arthropathy without myelopathy for evaluation s/p KAMRON L5-S1. Pt states she experienced 0 % pain relief x 3 wks s/p procedure. Pt states pain level is provoked at 8/10 in intensity, constant, localized in the lower lumbar spine, achy in character w shooting pain towards the BLEs. Pain is provoked by standing/ walking for periods of 45 min or more. Pain is alleviated by medications (Tyl, Aleve, Neurontin), PT to start in 1 wk, massage therapy semi monthly since Nov 2022 till present, chiropractic treatments weekly since Sep 2022 till present, physician guided home stretching regimen, repositioning and rest. Inteventional procedures include KAMRON L5-S1 Medications include Tyl, Aleve, Neurontin REVIEW OF ORGAN SYSTEMS: CONSTITUTIONAL: No fevers or chills. No recent weight loss. NEUROLOGICAL: + numbness and tingling along the distal extremities. No seizure disorders or headaches. MUSCULOSKELETAL: + pain PSYCHIATRIC: Denies current depression or suicidal thoughts. Physical Examinations : Constitutional : Cooperative , not in acute distress . Neurologic : Cranial nerve II to XII intact. No focal neurological deficits. Psychiatric : alert & oriented x 3. Matching mood & appropriate affect. Judgment & insight intact. Musculoskeletal : Cervical Spine Motor strength in the deltoid and biceps: Normal right side. Normal Left side Motor strength biceps and the wrist extensors: Normal right side . Normal left side Motor strength in the triceps muscle: Normal right side. Normal left side Deep tendon reflexes: Normal at the biceps. Normal at Brachioradialis. Normal at triceps Vertebral body tenderness to deep palpation over Cervical facet loading test: positive bilaterally Spurling test: positive bilaterally Neck distraction test: positive bilaterally Anais sign: positive bilaterally Lumbar spine Motor strength lower extremities ,thigh and legs 5/5 Right side , 5/5 Left side Deep tendon reflexes : Normal Knee Jerk. Normal Ankle Jerk Vertebral body tenderness over L5 Lumbar facet Loading Test: positive Right / positive Left Range of motion of the lumbar spine Flexion 30 degrees, extension 10 degrees Straight Leg Raise test: Left/ Right positive at degree Raúl test: positive right / positive left. Severe tenderness over the Sacroiliac joint on the Right / Left sides Gaenslen test: positive bilaterally Seated flexion test: positive bilaterally. Sacral spine : Severe tenderness over the Sacroiliac joint: right side / left side Range of motion: Flexion of the lumbar spine <60 degrees Range of motion: Extension of the lumbar spine <20 degrees Gaenslen's Test positive Jonathon's Test positive Raúl test: positive right side / left side Thigh Thrust Test Sacral Thrust Test Imaging: MRI without contrast of the lumbar spine from 12/28/22 reviewed Assessment/ Plan : Lumbar spondylosis States she has expeirenced side effects from steroids and is disinterested in future procedures. Will continue receiving [place] 5/325mg from Dr Trujillo and may return to our clinic on an as needed basis. All questions answered. I have spent greater than 30 minutes on patient care today. Dr Lei was available by phone for the evaluation of this patient. The time was used to review the medical records including relevant urine studies and Prescription history (MAPs), review of the available imaging, evaluation and examination of the patient, coordination of care with the medical staff and if applicable referring physicians, as well as creation of the medical record PQRS Narrative: Smoking Status Former smoker Hx Alcohol Use (MH) Yes Home Medications: Ambulatory Orders ALPRAZolam [Xanax] 1 mg PO BID PRN 10/10/21 Rimegepant Sulfate [Nurtec Odt] 75 mg PO DAILY PRN 10/10/21 Acetaminophen Tab [Tylenol Tab] 1,000 mg PO Q6HR PRN 01/17/23 Famotidine [Pepcid] 20 mg PO DAILY 01/17/23 Gabapentin [Neurontin] 300 mg PO TID PRN 01/17/23 Glucosamine HCl/Chondroitin Baires [Glucosamine-Chondroitin Cap] 1 cap PO DAILY 01/17/23 Magnesium 250 mg PO DAILY 01/17/23 Multivitamins, Thera [Multivitamin (formulary)] 1 tab PO DAILY 01/17/23 Naproxen Sodium [Aleve] 440 mg PO BID 01/17/23 Thiamine [Vitamin B-1] 100 mg PO DAILY 01/17/23 HYDROcodone/APAP 5-325MG [[place] 5-325] 1 tab PO Q6HR PRN 03/19/23 Ondansetron [Zofran] 4 mg PO Q6HR PRN 03/19/23 Controlled Substance Measures - Controlled Substance Measures Is patient prescribed a controlled substance at discharge?: No
== END ==
LOC: PNWHC3 10:34
PROVIDERS: ATTEND Specialist
DX: M47.816 Spondylosis without myelopathy or radiculopathy, lumbar region (principal); Z87.891 Personal history of nicotine dependence; Z88.1 Allergy status to other antibiotic agents; Z88.8 Allergy status to other drugs, medicaments and biological substances
CPT/HCPCS: 99211

== ENCOUNTER → 2023-08-05 | Outpatient (CLI) | payer MEDICAID ==
--- NOTE | 2023-08-05 22:36 | CT ---
EXAMINATION TYPE: CT abdomen pelvis wo con CT DLP: 1056.0 mGycm, Automated exposure control for dose reduction was used. DATE OF EXAM: 08/05/2023 4:55 PM COMPARISON: None. CLINICAL INDICATION:Female, 42 years old with history of R10.84 GENERALIZED ABDOMINAL PAIN; pelvic an d low back pain TECHNIQUE: Axial CT of the ;CT abdomen pelvis wo con;Sagittal and coronal reformats were created on a separate workstation. Contrast used: mL of , (none if empty) Oral contrast used: without Oral Contrast (none if empty) FINDINGS: LOWER CHEST: Unremarkable ABDOMEN LIVER: Diffusely hypoattenuating parenchyma. GALLBLADDER AND BILE DUCTS: Unremarkable. PANCREAS: Unremarkable. SPLEEN: Unremarkable. ADRENAL GLANDS: Unremarkable. KIDNEYS AND URETERS: Nonobstructing left 8 mm calculus. No right renal calculi. Large right peripelvi c cyst in the renal sinus dilated renal pelvis. PELVIS BLADDER: Unremarkable REPRODUCTIVE: Lobular contour suggestive of fibroid uterus. The uterus is retroverted. ABDOMEN & PELVIS STOMACH AND BOWEL: No evidence of bowel obstruction. The appendix is normal. PERITONEUM/RETROPERITONEUM: No evidence of pneumoperitoneum or free fluid. VASCULATURE: No evidence of aortic aneurysm. MUSCULOSKELETAL: No acute osseous abnormalities, mild degeneration changes of the spine. LYMPH NODES: No gross evidence for lymphadenopathy. SOFT TISSUE/ABDOMINAL WALL: Fat-containing umbilical hernia. IMPRESSION: 1. Right renal pelvis parapelvic cyst versus dilated renal pelvis. Consider further evaluation of th e right renal collecting system with CT urogram to rule out out ureteropelvic junction stricture. Cor relate with laterality of patient's pain. 2. Nonobstructing left renal calculus. 3. Hepatic steatosis.
== END | disposition home or self-care (01) ==
LOC: RADCTMAIN 16:37
PROVIDERS: ATTEND Family Medicine
DX: N20.0 Calculus of kidney (principal); K76.0 Fatty (change of) liver, not elsewhere classified; N28.1 Cyst of kidney, acquired
CPT/HCPCS: 74176

== ENCOUNTER → 2024-08-18 | Outpatient (CLI) | payer MEDICAID ==
[2024-08-18 18:47] LABS: Basophils # (A) 0.05 X 10*3/uL (0.00-0.10); Basophils % (A) 0.7 %; Eosinophils # (A) 0.04 X 10*3/uL (0.04-0.35); Eosinophils % (A) 0.5 %; HCT 43.5 % (37.2-46.3); HGB 14.7 g/dL (12.0-15.0); Lymphocytes # (A) 2.14 X 10*3/uL (0.90-5.00); MCH 32.2 pg (27.0-32.0); MCHC 33.8 g/dL (32.0-37.0); MCV 95.4 FL (80.0-97.0); Mean Platelet Volume 9.2 FL (9.5-12.2); Monocytes # (A) 0.46 X 10*3/uL (0.20-1.00); NRBC Per 100 WBC 0 X 10*3/uL (0.00-0.01); Neutrophils # (A) 4.93 X 10*3/uL (1.80-7.70); Neutrophils % (A) 64.5 %; Platelet Count 303 X 10*3/uL (140-440); RBC 4.56 X 10*6/uL (4.10-5.20); WBC 7.64 X 10*3/uL (4.50-10.00)
[2024-08-18 18:57] LABS: Blood Urea Nitrogen 10.3 mg/dL (9.0-27.0); Carbon Dioxide 25.8 mmol/L (21.6-31.8); Chloride 101 mmol/L (96-109); Glucose 106 mg/dL (70-110); Potassium 4.4 mmol/L (3.5-5.5); Sodium 138 mmol/L (135-145)
== END | disposition home or self-care (01) ==
LOC: LABWHC1 15:07
PROVIDERS: ATTEND Obstetrics & Gynecology Obstetrics
DX: Z01.812 Encounter for preprocedural laboratory examination (principal)
CPT/HCPCS: 80051; 82565; 82947; 84520; 85025; 86850; 86900; 86901; 87086

== ENCOUNTER 2024-08-20 05:51 | Day surgery (SDC) | payer MEDICAID ==
[2024-08-20] MEDS ORDERED: LIDOCAINE 1% (10MG/ML) FOR IV START INTRADERMA PRN (06:10)
[2024-08-20] MEDS: IV FLUID CONTINUATION 1,000 ML IV ONE (06:37)
[2024-08-20] MEDS: ONDANSETRON 4 MG/2 ML VIAL IVP ONE (06:55)
[2024-08-20] MEDS: SCOPOLAMINE 1 MG/72 HR PATCH TRANSDERM STA (07:00)
[2024-08-20] MEDS: MIDAZOLAM 2 MG/2 ML VIAL IV ONE (07:01)
--- NOTE | 2024-08-20 07:16 | P.ANPRN ---
Procedure Note - Anesthesia - Epidural/Spinal Spinal Time Out Performed: Yes Date of Procedure: 08/20/24 Procedure Start Time: 07:01 Procedure Stop Time: 07:16 Location of Patient: PreOp Indication: Acute Post-Operative Pain, Analgesia, Requested by Surgeon Sedation Type: Sedate with meaningful contact maintained Preparation: Sterile Prep Position: Sitting Catheter: None Needle Guage: 25 Narrative: Duramorph 0.3mg intrathecally. needle L3-4 level. AttemptX1 without difficulty. Blood Aspirated: No Pain Paresthesia on Injection Noted: No Events: Uneventful and Well Tolerated
[2024-08-20] MEDS ORDERED: fentaNYL (PF) 50 MCG/ML 2 ML AMP ONE (07:35)
[2024-08-20] MEDS ORDERED: NEOSTIGMINE 1 MG/ML 10 ML VIAL ONE (07:35)
[2024-08-20] MEDS ORDERED: LIDOCAINE 1% INJ 10MG/ML (20 ML MDV) ONE (07:35)
[2024-08-20] MEDS ORDERED: GLYCOPYRROLATE 0.2 MG/ML 2 ML VIAL ONE (07:35)
[2024-08-20] MEDS ORDERED: MIDAZOLAM 2 MG/2 ML VIAL ONE (07:35)
[2024-08-20] MEDS ORDERED: PROPOFOL 10 MG/ML 20 ML VIAL IV ONE (07:35)
[2024-08-20] MEDS ORDERED: ROCURONIUM 10 MG/ML (5 ML VIAL) IV ONE (07:35)
[2024-08-20] MEDS: BUPIVACAINE (PF) 0.25% 30 ML VIAL SQ ONE (08:00)
[2024-08-20] MEDS ORDERED: SIMETHICONE 80 MG CHEWABLE PO PRN (09:23)
--- NOTE | 2024-08-20 09:23 | P.OP ---
Date of Procedure: 08/20/24 Preoperative Diagnosis: Uterus, uterine fibroids, low back pain Postoperative Diagnosis: Same Procedure(s) Performed: Robotic assisted vaginal hysterectomy, bilateral salpingectomy, diagnostic cystoscopy Anesthesia: DEQUANA Surgeon: Ann Copeland Director Financial Services #1: Ngoc Galvan Estimated Blood Loss (ml): 50 IV fluids (ml): 400 Urine output (ml): 150 Pathology: other (Uterus cervix bilateral fallopian tubes) Condition: stable Disposition: PACU Indications for Procedure: Pelvic pain, enlarged uterus, uterine fibroids, low back pain Operative Findings: Enlarged globular uterus normal ovaries bilaterally. Evidence of endometrial implants consistent with endometriosis in the posterior cul-de-sac Description of Procedure: Patient was taken back to the operating room where general anesthesia was obtained without difficulty by the anesthesia department. Patient was prepped and draped in the normal sterile fashion in the dorsal lithotomy position. F oley catheter was placed under sterile technique. A weighted speculum space in the posterior vaginal vault, the Intralipid the cervix was visualized grasped with a single-tooth tenaculum and the endocervical canal was then serially dilated. A WineSimple uterine manipulator was then placed, the balloon was insufflated with air as a means to manipulate the uterus throughout the procedure. The cervical cap was placed likely against the cervix and all instruments were removed from the patient's vaginal vault. Attention was then turned to the patient's abdomen where approximately 2 fingerbreadths above the umbilicus a small skin incision is made. The Veress needle is placed through the incision and toward the abdominal cavity, once the Veress needle was deemed to be in the appropriate position with a drop of CO2 pressure with the insufflation of CO2 gas CO2 insufflation was allowed to occur. At this time an 8 mm trocar and sleeve with the laparoscope in place was placed through the skin incision and toward the pneumoperitoneum. The above-noted findings are visualized. The additional port sites are now placed 10 cm lateral and 3 cm inferior to the midline port these are 8 mm ports and placed under direct visualization. In the left upper quadrant a 12 mm skin incision is made and a 12 mm trocar and sleeve is placed through the skin incision toward the pneumoperitoneum. At this time the da Buck was docked in the usual fashion, the right operative arm the monopolar scissors is placed in the left operative arm the bipolar forceps is placed. The left fallopian tube was then elevated and the mesosalpinx was coagulated and transected to the level of the utero- ovarian ligament. The utero-ovarian ligament was then coagulated distally and proximally and divided, hemostasis was appreciated. This continued through the broad and toward the round which was coagulated distally proximally divided. The bladder flap from the left was then created using sharp and blunt dissection. The right fallopian tube was then elevated the mesosalpinx was coagulated and transected to the level of the utero-ovarian ligament. The utero-ovarian ligament was coagulated distally and proximally and divided. The round ligament was coagulated transected and divided. The ascending branch of the uterine artery from the right was then visualized coagulated and transected. The bladder flap from the right was created using sharp and blunt dissection. Multiple vessels were appreciated in the anterior portion of the uterus under the bladder flap these were coagulated and transected. The extended range of the uterine artery from the left was visualized coagulated and transected. At this time the only remaining attachment was a vaginal attachment therefore colpotomy incision was made in a circumferential fashion and the uterus bilateral fallopian tubes were delivered through the vaginal opening. The pelvis was then copiously irrigated. The vaginal cuff was then closed with 0 Vicryl in a [id number] fashion. Approximately 5 sutures were used to obtain hemostasis. The pelvis was then copiously irrigated hemostasis was appreciated Surgicel powder was placed along the vaginal cuff. All instruments were removed from the patient's abdomen at this time. Attention was then turned to the patient's Manning catheter which was noted to be draining clear yellow urine. Cystoscopy was performed. The cystoscope was placed through the urethra and for the bladder bladder bubble was appreciated and complete survey of the bladder revealed normal mucosa, both ureteral orifices were noted to be spilling clear yellow urine. The cystoscope was removed and the Manning catheter was replaced. Attention was then turned to the patient's abdomen where the skin incisions were closed with 4-0 Vicryl in a subcuticular fashion. Steri-Strips and sterile dressings were applied. All counts were noted be correct x 2. Patient tolerated procedure well and was taken to the recovery room awake in stable condition.
[2024-08-20] MEDS ORDERED: ACETAMINOPHEN TAB 500 MG TAB PO SCH ×2 (09:30→14:00)
[2024-08-20] MEDS: HYDROmorphone 0.5 MG/0.5 ML SYRINGE IVP PRN (09:34)
[2024-08-20] MEDS: LACTATED RINGERS 1,000 ML IV ONE (09:54)
[2024-08-20] MEDS: droPERidol 5 MG/2 ML VIAL IVP ONE (10:10)
[2024-08-20] MEDS: IBUPROFEN IV 800 MG in SODIUM CHLORIDE 0.9% 250 ML IV ONE (10:49)
[2024-08-20] MEDS: LACTATED RINGERS 1,000 ML IV SCH (10:50)
[2024-08-20] MEDS: ACETAMINOPHEN IV (For NPO) 1,000 MG in EMPTY BAG 1 BAG IVPB ONE (15:53)
[2024-08-20] MEDS: MECLIZINE 25 MG TAB PO PRN (18:25)
[2024-08-20] MEDS: ONDANSETRON 4 MG/2 ML VIAL IVP PRN (18:48)
[2024-08-20] MEDS: IBUPROFEN 800 MG TAB PO SCH (19:58)
[2024-08-20] MEDS: SENNOSIDES-DOCUSATE SODIUM 1 EACH TAB PO SCH (19:59)
[2024-08-20] MEDS: FAMOTIDINE 20 MG TAB PO SCH (20:00)
[2024-08-20] MEDS: ALPRAZolam 1 MG TAB PO PRN (23:05)
[2024-08-21] MEDS: ACETAMINOPHEN TAB 500 MG TAB PO SCH (03:07)
--- NOTE | 2024-08-21 06:36 | P.DS ---
Providers Date of admission: 08/20/2024 Expected date of discharge: 08/21/24 Attending physician: Ann Copeland Primary care physician: Grayson Trujillo - Discharge Diagnosis(es) (1) Enlarged uterus Current Visit: Yes Status: Acute (2) Uterine fibroid Current Visit: Yes Status: Acute (3) Low back pain Current Visit: Yes Status: Acute (4) Pelvic pain Current Visit: Yes Status: Acute Hospital Course: 44-year-old female that presented to [facility] yesterday on 08/20 for scheduled robotic assisted vaginal hysterectomy, bilateral salpingectomy, diagnostic cystoscopy. Patient has known uterine fibroids and increasing low back pain. Patient desired definitive treatment. For full details in this patient please the dictated history and physical. Patient was taken back to the operating suite where procedure was performed, buttock assist vaginal hysterectomy, bilateral salpingectomy, diagnostic cystoscopy. For full details on the procedure please see the dictated operative report. Patient has done well postoperatively. On this postoperative day #1 she is ambulating without difficulty. The Manning catheter was removed and she has had a small void. She denies vaginal bleeding. She is tolerating a regular diet without nausea or vomiting. She denies concerns and would like discharge home later today. Patient Condition at Discharge: Good Plan - Discharge Summary Discharge Rx Participant: Yes New Discharge Prescriptions: No Action Naproxen Sodium [Aleve] 440 mg PO DAILY Rimegepant Sulfate [Nurtec Odt] 75 mg PO DAILY PRN PRN Reason: Migraine Headache ALPRAZolam [Xanax] 1 mg PO BID PRN PRN Reason: Anxiety Famotidine [Pepcid] 20 mg PO BID Ondansetron [Zofran] 4 mg PO Q6HR PRN PRN Reason: Nausea Losartan/Hydrochlorothiazide [Hyzaar 100-25 Tablet] 1 tab PO PC-SUPPER HYDROcodone/APAP 7.5-325MG [[place] 7.5-325] 1 tab PO TID Discharge Medication List ALPRAZolam [Xanax] 1 mg PO BID PRN 10/10/21 [History] Rimegepant Sulfate [Nurtec Odt] 75 mg PO DAILY PRN 10/10/21 [History] Famotidine [Pepcid] 20 mg PO BID 01/17/23 [History] Naproxen Sodium [Aleve] 440 mg PO DAILY 01/17/23 [History] Ondansetron [Zofran] 4 mg PO Q6HR PRN 03/19/23 [History] HYDROcodone/APAP 7.5-325MG [[place] 7.5-325] 1 tab PO TID 08/14/24 [History] Losartan/Hydrochlorothiazide [Hyzaar 100-25 Tablet] 1 tab PO PC-SUPPER 08/14/24 [History] Follow up Appointment(s)/Referral(s): Ann Copeland DO [Doctor of Osteopathic Medicine] - 2 Weeks Patient Instructions/Handouts: *Surgery [facility] - Scopalamine Patch Instructions, Hysterectomy (GEN), Hysterectomy (DC) Activity/Diet/Wound Care/Special Instructions: No intercourse, or tub baths. No heavy lifting greater than a gallon of milk. No driving for two weeks. Call with any fever, shakes or chills, with any pain not alleviated by over the counter meds, or with any questions or concerns. [id number] ibuprofen 600 mg or 3 tablets every 6 hours as needed for pain Discharge Disposition: HOME SELF-CARE
--- NOTE | 2024-08-21 07:12 | P.PN ---
Progress Note - Text 08/21/24 643am 44-year-old female status post robotic vaginal hysterectomy with spinal Duramorph. Patient seen and evaluated for postop pain control, she has a VAS of 3 with no complaints of nausea vomiting and mild pruritus. Patient doing well
[2024-08-21 07:40] LABS: Basophils % (A) 0 %; Eosinophils # (A) 0.1 k/uL (0-0.7); Eosinophils % (A) 1 %; HGB 13.1 gm/dL (11.4-16.0); Lymphocytes # (A) 1.9 k/uL (1.0-4.8); Lymphocytes % (A) 24 %; MCH 32.7 pg (25.0-35.0); MCHC 33.5 g/dL (31.0-37.0); MCV 97.7 fL (80.0-100.0); Mean Platelet Volume 6.9; Monocytes # (A) 0.3 k/uL (0-1.0); Monocytes % (A) 4 %; Neutrophils # (A) 5.5 k/uL (1.3-7.7); Neutrophils % (A) 70 %; Platelet Count 248 k/uL (150-450); RDW 12.6 % (11.5-15.5); WBC 7.9 k/uL (3.8-10.6)
[2024-08-21 08:44] VITALS: BP 97/63; PULSE 69; RESP 12; TEMP 97.2
== END 2024-08-21 10:50 | disposition home or self-care (01) ==
LOC: OR 05:51 → 4FBP 09:24 → OR 08-21 10:50
PROVIDERS: ATTEND Obstetrics & Gynecology Obstetrics
DX: D25.1 Intramural leiomyoma of uterus (principal); N83.8 Other noninflammatory disorders of ovary, fallopian tube and broad ligament; G89.18 Other acute postprocedural pain; I10 Essential (primary) hypertension; G43.909 Migraine, unspecified, not intractable, without status migrainosus; F41.9 Anxiety disorder, unspecified; G62.9 Polyneuropathy, unspecified; K21.9 Gastro-esophageal reflux disease without esophagitis; Z87.891 Personal history of nicotine dependence; Z86.711 Personal history of pulmonary embolism; Z88.1 Allergy status to other antibiotic agents; Z88.8 Allergy status to other drugs, medicaments and biological substances; Z88.6 Allergy status to analgesic agent; Z79.899 Other long term (current) drug therapy
CPT/HCPCS: 58552; S2900; 81025; 85025; 88307

== ENCOUNTER → 2024-09-25 | Outpatient (CLI) | payer MEDICAID ==
--- NOTE | 2024-09-25 21:39 | MR ---
EXAMINATION TYPE: MR gage/lsleonides wo con DATE OF EXAM: 09/25/2024 7:13 PM COMPARISON: 12/29/2023. CLINICAL INDICATION: Female, 44 years old with history of M54.6 PAIN IN THORACIC SPINE M54.59 OTHER L OW BACK; PHH, mid and low back pain, bilateral leg pain, numbness and tingling in both legs TECHNIQUE: Multi planar, multi sequence imaging was performed utilizing: T1-weighted, T2-weighted, a nd turbo inversion recovery imaging of the thoracic and lumbar spine. IV Contrast: mL (None, if empty) FINDINGS: Alignment: The thoracic and lumbar vertebral bodies have preserved heights and alignment. Cord: The conus medullaris and the distal spinal cord appear unremarkable with regards to their signa l intensity and morphology. Bones/Discs: Bone signal is within normal limits. Multilevel degeneration with facet joint arthropath y and disc space narrowing with osteophyte formation. THORACIC: No evidence significant spinal canal or neural foraminal stenosis. Spinal cord is within no rmal limits. LUMBAR: T12-L1: No evidence of significant spinal canal stenosis or neural foraminal stenosis. L1-L2: No evidence of significant spinal canal stenosis or neural foraminal stenosis. L2-L3: No evidence of significant spinal canal stenosis or neural foraminal stenosis. L3-L4: Disc bulge and facet joint arthropathy result in mild spinal canal and mild bilateral neural f oraminal stenosis. L4-L5: Disc bulge and facet joint arthropathy result in mild spinal canal and mild bilateral neural f oraminal stenosis. L5-S1: The disc is rounded posterior morphology without significant spinal canal stenosis. Facet join t arthropathy with mild neural foraminal stenosis. Other findings: High T2 signal right renal cyst IMPRESSION: 1. No definitive evidence of disc herniation or significant spinal canal stenosis. 2. Mild disc degeneration with associated osteoarthritic changes. No evidence for significant spinal canal or neural foraminal stenosis. [facility], , 09/25/2024 9:37 PM
== END | disposition home or self-care (01) ==
LOC: RADMRIMAIN 17:57
PROVIDERS: ATTEND Orthopaedic Surgery Orthopaedic Surgery of the Spine
DX: M51.35 Other intervertebral disc degeneration, thoracolumbar region (principal); M47.896 Other spondylosis, lumbar region; N28.1 Cyst of kidney, acquired
CPT/HCPCS: 72146; 72148

== ENCOUNTER 2024-10-27 17:33 | Emergency (ER) | payer MEDICAID ==
--- NOTE | 2024-10-27 17:46 | ED ---
Female Urogenital HPI - General Source: patient, RN notes reviewed Mode of arrival: ambulatory Limitations: no limitations <Tabatha Boone - Last Filed: 10/27/24 17:46> <Ashley Torres - Last Filed: 11/04/24 13:05> - General Stated complaint: bladder issues post op Time Seen by Provider: 10/27/24 17:44 - History of Present Illness Initial comments: Quick note: 44-year-old female presented to the ER for evaluation of bladder pain. Patient underwent a hysterectomy with on 08-20-2024. She states since then she has been having severe cramping pain along with burning to her genital area. She states she has been treated with 3 different antibiotics for concern of UTI. She admits to blood in her urine. She is also tried oxybutynin and Bentyl with minimal relief. Patient states she is taking Azo every 8 hours for pain control. Denies any fevers. She does report back pain but states she does have chronic low back pain. No other complaints. (Tabatha Boone) 44-year-old female presents emergency department reporting dysuria. Patient underwent a hysterectomy by Dr. Hernandez on August 20 as she did have considerable back pain. States that since then she has had severe cramping and burning in her genital area. She has extreme pain with urination. She has been on 3 different antibiotics for UTI. Believes that she sees blood in her urine. Denies any vaginal bleeding or discharge. She has been on several medications including oxybutynin and Bentyl with only minimal relief in her symptoms. States the only thing that helps is Azo. It seems as if her pain has gotten extremely worse over the past couple of days. She called her urologist who directed her to come to the emergency department. She denies any fevers. No issues with her bowel habits to include diarrhea, constipation, black or bloody stools. No other alleviating, precipitating modifying factors (Ashley Torres) - Related Data Home Medications Medication Instructions Recorded Confirmed ALPRAZolam [Xanax] 1 mg PO BID PRN 10/10/21 08/20/24 Rimegepant Sulfate [Nurtec Odt] 75 mg PO DAILY PRN 10/10/21 08/14/24 Famotidine [Pepcid] 20 mg PO BID 01/17/23 08/14/24 Naproxen Sodium [Aleve] 440 mg PO DAILY 01/17/23 08/14/24 Ondansetron [Zofran] 4 mg PO Q6HR PRN 03/19/23 08/20/24 HYDROcodone/APAP 7.5-325MG [[place] 1 tab PO TID 08/14/24 08/20/24 7.5-325] Losartan/Hydrochlorothiazide 1 tab PO PC-SUPPER 08/14/24 08/20/24 [Hyzaar 100-25 Tablet] Allergies Allergy/AdvReac Type Severity Reaction Status Date / Time cephalexin [From Keflex] Allergy nausea/dizz Verified 10/27/24 18:13 y methylprednisolone Allergy ANXIETY Verified 10/27/24 18:13 [From Medrol] FELT LIKE FAST HEARTBEAT, Review of Systems ROS Other: All systems not noted in ROS Statement are negative. <Tabatha Boone - Last Filed: 10/27/24 17:46> ROS Other: All systems not noted in ROS Statement are negative. <Ashley Torres - Last Filed: 11/04/24 13:05> ROS Statement: Those systems with pertinent positive or pertinent negative responses have been documented in the HPI. Past Medical History Past Medical History: GERD/Reflux, Hypertension, Pulmonary Embolus (PE) Additional Past Medical History / Comment(s): endometriosis/heavy periods, migraines, insomnia, chronic low back pain History of Any Multi-Drug Resistant Organisms: None Reported Past Surgical History: Uterine Ablation Additional Past Surgical History / Comment(s): lumbar epidural steroid injection Past Anesthesia/Blood Transfusion Reactions: Motion Sickness, Postoperative Nausea & Vomiting (PONV) Additional Past Anesthesia/Blood Transfusion Reaction / Comment(s): severe vertigo x 10 days post anesthesia Past Psychological History: Anxiety Smoking Status: Current every day smoker, Former smoker Past Alcohol Use History: Occasional Additional Past Alcohol Use History / Comment(s): quit smoking 2008, smoked for 12 yrs, < 1/2 PPD. 4 drinks/week Past Drug Use History: None Reported - Past Family History Mother Family Medical History: Cancer, Liver Disease Father Family Medical History: CVA/TIA Additional Family Medical History / Comment(s): CVA age 28 <Tabatha Boone - Last Filed: 10/27/24 17:46> General Exam <Tabatha Boone - Last Filed: 10/27/24 17:46> General appearance: alert, in no apparent distress Head exam: Present: atraumatic, normocephalic, normal inspection Eye exam: Present: normal appearance, PERRL, EOMI. Absent: scleral icterus, conjunctival injection, periorbital swelling ENT exam: Present: normal exam, mucous membranes moist Neck exam: Present: normal inspection. Absent: tenderness, meningismus, lymphadenopathy Respiratory exam: Present: normal lung sounds bilaterally. Absent: respiratory distress, wheezes, rales, rhonchi, stridor Cardiovascular Exam: Present: regular rate, normal rhythm, normal heart sounds. Absent: systolic murmur, diastolic murmur, rubs, gallop, clicks GI/Abdominal exam: Present: soft, normal bowel sounds. Absent: distended, tenderness, guarding, rebound, rigid Extremities exam: Present: normal inspection, full ROM, normal capillary refill. Absent: tenderness, pedal edema, joint swelling, calf tenderness Back exam: Present: normal inspection Neurological exam: Present: alert, oriented X3, CN II-XII intact Psychiatric exam: Present: normal affect, normal mood Skin exam: Present: warm, dry, intact, normal color. Absent: rash <Ashley Torres - Last Filed: 11/04/24 13:05> - General Exam Comments Initial Comments: Visual Physical Exam Vital signs reviewed General: Well-appearing, nontoxic, no acute distress. Head: Normocephalic, atraumatic Eyes: PERRLA, EOMI ENT: Airway patent Chest: Nonlabored breathing Skin: No visual rash, normal skin tone Neuro: Alert and oriented 3 Musculoskeletal: No gross abnormalities (Tabatha Boone) Course Vital Signs 10/27/24 10/27/24 18:07 22:55 Temperature 98.4 F Pulse Rate 93 84 Respiratory 18 18 Rate Blood Pressure 153/90 150/90 O2 Sat by Pulse 96 99 Oximetry Medical Decision Making <Tabatha Boone - Last Filed: 10/27/24 17:46> - Lab Data Result diagrams: 10/27/24 18:40 10/27/24 18:40 <Ashley Torres - Last Filed: 11/04/24 13:05> - Medical Decision Making I performed the quick note portion of this chart. Electronically signed by Tabatha Boone PA-C (Tabatha Boone) Was pt. sent in by a medical professional or institution ([facility], [employer], urgent care, hospital, or skilled nursing...) When possible be specific @ -Patient sent in from her OB office Did you speak to anyone other than the patient for history (EMS, parent, family, police, friend...)? What history was obtained from this source @ -No Did you review nursing and triage notes (agree or disagree)? Why? @ -I reviewed and agree with nursing and triage notes Were old charts reviewed (outside hosp., previous admission, EMS record, old EKG, old radiological studies, urgent care reports/EKG's, skilled nursing records)? Report findings @ -No old charts were reviewed Differential Diagnosis (chest pain, altered mental status, abdominal pain women, abdominal pain men, vaginal bleeding, weakness, fever, dyspnea, syncope, heada lila, dizziness, GI bleed, back pain, seizure, CVA, palpatations, mental health, musculoskeletal)? @ -Differential Abdominal Pain Women: Appendicitis, Cholecystitis, diverticulosis, ischemic bowel, pancreatitis, hepatitis, UTI, gastroenteritis, AAA, incarcerated hernia, bowel obstruction, constipation, inflammatory bowel, hepatitis, peptic ulcer disease, splenic infarction, perforated viscus, vulvitis, ovarian torsion, PID, kidney stone, placenta abruption, this is not meant to be an all-inclusive list EKG interpreted by me (3pts min.). @ -Not done X-rays interpreted by me (1pt min.). @ -None done CT interpreted by me (1pt min.). @ -Yes which demonstrates no acute process U/S interpreted by me (1pt. min.). @ -None done What testing was considered but not performed or refused? (CT, X-rays, U/S, labs)? Why? @ -None What meds were considered but not given or refused? Why? @ -None Did you discuss the management of the patient with other professionals (professionals i.e. [facility], [employer], lab, RT, psych nurse, director of social media marketing, mat inspector, teacher, program officer, case mgr)? Give summary @ -No Was smoking cessation discussed for >3mins.? @ -No Was critical care preformed (if so, how long)? @ -No Were there social determinants of health that impacted care today? How? (Homelessness, low income, unemployed, alcoholism, drug addiction, transportation, low edu. Level, literacy, decrease access to med. care, m[facility], rehab)? @ -No Was there de-escalation of care discussed even if they declined (Discuss DNR or withdrawal of care, Hospice)? DNR status @ -No What co-morbidities impacted this encounter? (DM, HTN, Smoking, COPD, CAD, Cancer, CVA, ARF, Chemo, Hep., AIDS, mental health diagnosis, sleep apnea, morbid obesity)? @ -None Was patient admitted / discharged? Hospital course, mention meds given and route, prescriptions, significant lab abnormalities, going to OR and other p ertinent info. @ -Upon arrival patient seen and evaluated in bed 32. Thorough history and physical exam was performed. IV access was established. Laboratory studies are conducted. Urinalysis was performed. CT was performed with no identification of any acute process. I did discuss with the patient the possible differential. I do recommend that she follow-up with urology as well as OB for further evaluation and diagnosis. Patient was agreeable to this. She was discharged home in stable condition Undiagnosed new problem with uncertain prognosis? @ -yes Drug Therapy requiring intensive monitoring for toxicity (Heparin, Nitro, Insulin, Cardizem)? @ -No Were any procedures done? @ -No Diagnosis/symptom? @ -Acute exacerbation of chronic dysuria, status post hysterectomy Acute, or Chronic, or Acute on Chronic? @ -Acute on chronic Uncomplicated (without systemic symptoms) or Complicated (systemic symptoms)? @ -Complicated Side effects of treatment? @ -No Exacerbation, Progression, or Severe Exacerbation? @ -No Poses a threat to life or bodily function? How? (Chest pain, [place], MT, pneumonia, PE, COPD, DKA, ARF, appy, cholecystitis, CVA, Diverticulitis, Homicidal, Suicidal, threat to staff... and all critical care pts) @ -No (Ashley Torres) - Lab Data Lab Results 10/27/24 10/27/24 10/27/24 Range/Units 18:25 18:40 18:40 WBC 8.4 (3.8-10.6) k/uL RBC 4.17 (3.80-5.40) m/uL Hgb 13.6 (11.4-16.0) gm/dL Hct 41.9 (34.0-46.0) % MCV 100.4 H (80.0-100.0) fL MCH 32.6 (25.0-35.0) pg MCHC 32.5 (31.0-37.0) g/dL RDW 12.7 (11.5-15.5) % Plt Count 365 (150-450) k/uL MPV 6.5 Neutrophils % 67 % Lymphocytes % 27 % Monocytes % 5 % Eosinophils % 1 % Basophils % 0 % Neutrophils # 5.6 (1.3-7.7) k/uL Lymphocytes # 2.3 (1.0-4.8) k/uL Monocytes # 0.4 (0-1.0) k/uL Eosinophils # 0.1 (0-0.7) k/uL Basophils # 0.0 (0-0.2) k/uL Sodium 138 (137-145) mmol/L Potassium 4.0 (3.5-5.1) mmol/L Chloride 101 (98-107) mmol/L Carbon Dioxide 28 (22-30) mmol/L Anion Gap 9 mmol/L BUN 16 (7-17) mg/dL Creatinine 0.77 (0.52-1.04) mg/dL Est GFR (CKD-EPI)AfAm >90 (>60 ml/min/1.73 sqM) Est GFR (CKD-EPI)NonAf >90 (>60 ml/min/1.73 sqM) Glucose 104 H (74-99) mg/dL Calcium 9.1 (8.4-10.2) mg/dL Total Bilirubin 0.9 (0.2-1.3) mg/dL AST 29 (14-36) U/L ALT 33 (4-34) U/L Alkaline Phosphatase 48 (38-126) U/L Total Protein 7.5 (6.3-8.2) g/dL Albumin 4.3 (3.5-5.0) g/dL Urine Color Dark Brown Urine Appearance Clear (Clear) Urine pH 6.0 (5.0-8.0) Ur Specific [place] 1.022 (1.001-1.035) Urine Protein Trace H (Negative) Urine Glucose (UA) Negative (Negative) Urine Ketones 1+ H (Negative) Urine Blood Negative (Negative) Urine Nitrite Positive H (Negative) Urine Bilirubin 1+ H (Negative) Urine Urobilinogen 3.0 (<2.0) mg/dL Ur Leukocyte Esterase Negative (Negative) Urine RBC 3 (0-5) /hpf Urine WBC 1 (0-5) /hpf Ur Squamous Epith Cells 1 (0-4) /hpf Urine Mucus Few H (None) /hpf Disposition <Tabatha Boone - Last Filed: 10/27/24 17:46> Is patient prescribed a controlled substance at d/c from ED?: No Time of Disposition: 22:37 <Ashley Torres - Last Filed: 11/04/24 13:05> Clinical Impression: Dysuria, Suprapubic pain, acute Disposition: HOME SELF-CARE Condition: Stable Instructions (If sedation given, give patient instructions): Abdominal Pain (ED), Interstitial Cystitis (ED) Additional Instructions: Please follow-up with the urologist for a possible cystoscopy. I do feel that you also need to follow-up with the [employer] as your symptoms started postsurgery. Continue taking your medications as they are instructed. Take a look at the attached instructions and dietary list for possible interstitial cystitis. Return to the emergency department any new or worsening symptoms Referrals: Grayson Trujillo MD [Primary Care Provider] - 1-2 days Dex Walter MD [STAFF PHYSICIAN] - 1-2 days Ann Copeland DO [Doctor of Osteopathic Medicine] - 1-2 days
[2024-10-27 18:14] VITALS: RESP 18; TEMP 98.4
[2024-10-27 18:57] LABS: Basophils % (A) 0 %; Eosinophils # (A) 0.1 k/uL (0-0.7); Eosinophils % (A) 1 %; HCT 41.9 % (34.0-46.0); HGB 13.6 gm/dL (11.4-16.0); Lymphocytes # (A) 2.3 k/uL (1.0-4.8); Lymphocytes % (A) 27 %; MCH 32.6 pg (25.0-35.0); MCHC 32.5 g/dL (31.0-37.0); MCV 100.4 fL (80.0-100.0); Mean Platelet Volume 6.5; Monocytes # (A) 0.4 k/uL (0-1.0); Monocytes % (A) 5 %; Neutrophils # (A) 5.6 k/uL (1.3-7.7); Neutrophils % (A) 67 %; Platelet Count 365 k/uL (150-450); RBC 4.17 m/uL (3.80-5.40); RDW 12.7 % (11.5-15.5); WBC 8.4 k/uL (3.8-10.6)
[2024-10-27 18:59] LABS: Appearance,Urine Clear (Clear); Bilirubin,Urine 1+ (Negative); Blood,Urine Negative (Negative); Color,Urine Dark Brown; Glucose,Urine (UA) Negative (Negative); Ketones,Urine 1+ (Negative); Leukocyte Esterase,Urine Negative (Negative); Mucus,Urine Few /hpf; Nitrite,Urine Positive (Negative); Protein,Urine Trace (Negative); RBC,Urine 3 /hpf (0-5); Specific Gravity,Urine 1.022 (1.001-1.035); Squamous Epithelial Cell,Urine 1 /hpf (0-4); WBC,Urine 1 /hpf (0-5)
[2024-10-27 19:18] LABS: ALT 33 U/L (4-34); AST 29 U/L (14-36); African American GFR (CKD) >90 (>60 ml/min/1.73 sqM); Albumin 4.3 g/dL (3.5-5.0); Alkaline Phosphatase 48 U/L (38-126); Anion Gap 9 mmol/L; Blood Urea Nitrogen 16 mg/dL (7-17); Calcium 9.1 mg/dL (8.4-10.2); Carbon Dioxide 28 mmol/L (22-30); Chloride 101 mmol/L (98-107); Glucose 104 mg/dL (74-99); Non-African American GFR(CKD) >90 (>60 ml/min/1.73 sqM); Sodium 138 mmol/L (137-145); Total Bilirubin 0.9 mg/dL (0.2-1.3); Total Protein 7.5 g/dL (6.3-8.2)
--- NOTE | 2024-10-27 20:20 | CT ---
EXAMINATION TYPE: CT abdomen pelvis w con DATE OF EXAM: 10/27/2024 8:00 PM COMPARISON: CT abdomen pelvis most recent from 08/05/2023 CLINICAL INDICATION: Female, 44 years old with history of abd pain post op; bladder and pelvic pain 2 months post-op hysterectomy TECHNIQUE: Axial CT abdomen pelvis w con;Sagittal and coronal reformats were created on a separate w orkstation. Contrast used:100 mL of Isovue 300 with IV Contrast, (none if empty) Oral contrast used: without Oral Contrast (none if empty) CT DLP: 1643.4 mGycm, Automated exposure control for dose reduction was used. FINDINGS: LOWER CHEST: Unremarkable ABDOMEN LIVER: Diffusely hypoattenuating parenchyma. GALLBLADDER AND BILE DUCTS: Unremarkable. PANCREAS: Unremarkable. SPLEEN: Unremarkable. ADRENAL GLANDS: Unremarkable. KIDNEYS AND URETERS: Similar large right renal pelvis cystic structure possibly peripelvic cysts vers us dilated renal pelvis.. No evidence of hydronephrosis or obstructive renal calculus. No obstructing left renal 5 mm calculus. The ureters are unremarkable. PELVIS BLADDER: Bladder is essentially not distended at all. REPRODUCTIVE: The uterus is surgically absent. Left ovarian follicles present. No organizing fluid co llection the surgical bed. ABDOMEN & PELVIS STOMACH AND BOWEL: No evidence of bowel obstruction. The appendix is normal. PERITONEUM/RETROPERITONEUM: No evidence of pneumoperitoneum or free fluid. VASCULATURE: No evidence of aortic aneurysm. MUSCULOSKELETAL: No acute osseous abnormalities, no evidence of significant spinal canal or neural fo raminal stenosis. Mild degeneration changes throughout the spine. LYMPH NODES: No gross evidence for lymphadenopathy. SOFT TISSUE/ABDOMINAL WALL: Small fat-containing umbilical hernia. IMPRESSION: 1. Interval hysterectomy change from 08/05/2023, no organizing fluid collection. No evidence for com plication. 2. Hepatic steatosis. 3. Right renal pelvis cyst not significantly changed. 4. Nonobstructing left superior renal calculus. 5. The appendix is normal. 6. Small Fat-containing umbilical hernia. [facility], , 10/27/2024 8:17 PM
[2024-10-27 22:56] VITALS: BP 150/90; PULSE 84
== END 2024-10-27 22:54 | disposition home or self-care (01) ==
LOC: EC 17:33
DX: R30.0 Dysuria (principal); R10.33 Periumbilical pain; F17.200 Nicotine dependence, unspecified, uncomplicated; Z88.1 Allergy status to other antibiotic agents; Z88.8 Allergy status to other drugs, medicaments and biological substances
CPT/HCPCS: 36415; 80053; 85025; 81001; 74177; 99284; Q9967

== ENCOUNTER → 2025-02-26 | Outpatient (CLI) | payer MEDICAID ==
[2025-02-26 18:44] LABS: T4, Free (Free Thyroxine) 1.15 ng/dL (0.80-1.80)
== END | disposition home or self-care (01) ==
LOC: LABWHC1 12:23
PROVIDERS: ATTEND Family Medicine
DX: I10 Essential (primary) hypertension (principal); E53.8 Deficiency of other specified B group vitamins; Z79.899 Other long term (current) drug therapy
CPT/HCPCS: 36415; 82607; 82728; 82746; 84439; 84443